=== PATIENT | female | born 1975 | race Caucasian/White ===

== ENCOUNTER 2022-05-27 15:45 | Emergency (ER) | payer SELFPAY ==
[~2022-05-27] VITALS: Ht 177.8 cm; Wt 120.2 kg
[~2022-05-27 15:45] MED LIST: Bactrim Ds Tab1 EACH PO; CEPH500 PO; CHOL10002 PO; CIPRO500 MG PO; Calcium 1,2001 EACH PO; Cleocin HCl300 MG PO; DOXY100 PO; FAMO20 PO; FLUC150A PO; HIBICLENS120 ML; HYDACE5 PO; HYDCHL25 PO; HYDR1TAB94 PO; IBUP600 PO; IBUP800 PO; KETO10 PO; Keflex500 MG PO; METR70GEL VAG; MUPI2TO; NAPR500 PO; Norco 5-325 Ta1 EACH PO; OMEP20ER PO; OXYACE5T PO; PROC10 PO; Pyridium200 MG PO; RANI150 PO; RESCUE INHALER INH; SULTRIDS PO; SUMA5NI; TRAM50 PO; Tylenol With C1 EACH PO; VALA500 PO; VITAMIN D5000 UNIT PO; Zofran Odt4 MG SL; [UNRECOGNIZED DRUG - REMARK]
[2022-05-27] MEDS ORDERED: PROM25 PO (16:20)
[2022-05-27] MEDS ORDERED: CODEINE-GUAIFE120 M1 PO (16:20)
== END 2022-05-27 16:26 | disposition home or self-care (01) ==
LOC: ER 15:45
DX: J10.1 Influenza due to other identified influenza virus with other respiratory manifestations (principal); Z88.5 Allergy status to narcotic agent; Z79.899 Other long term (current) drug therapy; Z87.891 Personal history of nicotine dependence
CPT/HCPCS: 99282

== ENCOUNTER 2022-06-12 10:40 | Emergency (ER) | payer OTHER ==
[~2022-06-12] VITALS: Ht 177.8 cm; Wt 158.3 kg
[~2022-06-12 10:40] MED LIST changes: +CODEINE-GUAIFE120 M1 PO; +PROM25 PO
[2022-06-12 11:31] LABS: BASOPHILS ABSOLUTE AUTO 0.07 K/mm3 (0.00-0.23); BASOPHILS PERCENT AUTO 1 % (0-2); EOSINOPHILS ABSOLUTE AUTO 0.16 K/mm3 (0.00-0.68); EOSINOPHILS PERCENT AUTO 2 % (0-6); Hematocrit 41.7 % (33.0-51.0); Hemoglobin 14.5 g/dL (11.5-16.0); IMMATURE GRAN ABSOLUTE AUTO 0.03 K/mm3 (0.00-0.10); IMMATURE GRAN PERCENT AUTO 0 % (0-1); LYMPHOCYTES ABSOLUTE AUTO 3.67 K/mm3 (0.84-5.20); LYMPHOCYTES PERCENT AUTO 40 % (21-46); MONOCYTES ABSOLUTE AUTO 0.73 K/mm3 (0.16-1.47); MONOCYTES PERCENT AUTO 8 % (4-13); Mean Corpuscular HGB 33.3 pg (26.0-34.0); Mean Corpuscular HGB Conc 34.8 g/dL (31.5-36.5); Mean Corpuscular Volume 96 fL (80-100); Mean Platelet Volume 9.7 fL (9.1-12.4); NEUTROPHILS ABSOLUTE AUTO 4.52 K/mm3 (1.96-9.15); NEUTROPHILS PERCENT AUTO 49 % (41-73); Platelet Count 280 K/mm3 (150-400); RDW Coefficient Variation 12.6 % (11.7-14.2); RDW Standard Deviation 44.7 fL (35.1-46.3); Red Blood Cell Count 4.35 M/mm3 (3.80-5.20); White Blood Cell Count 9.18 K/mm3 (4.00-11.30)
[2022-06-12 11:49] LABS: Albumin, Blood 3.4 g/dL (3.4-5.0); Albumin/Globulin Ratio 0.8 (0.8-1.8); Bilirubin, Total 0.4 mg/dL (0.1-1.0); Bun/Creatinine Ratio 14.6 (12.0-20.0); Calcium, Blood 8.8 mg/dL (8.5-10.1); Creatinine, Blood 0.69 mg/dL (0.40-1.00); Potassium, Blood 4.4 mmol/L (3.5-5.5); Total Protein, Blood 7.4 g/dL (6.4-8.2)
[2022-06-12] MEDS ORDERED: Bentyl20 MG PO (12:50)
[2022-06-12] MEDS ORDERED: DICY20 PO (15:28)
[2022-06-12] MEDS ORDERED: FAMO20 PO (15:28)
[2022-06-12] MEDS ORDERED: ALMACONE SUSPE355 ML PO (15:28)
[2022-06-12] MEDS ORDERED: ONDA4ODT MM (15:28)
== END 2022-06-12 15:39 | disposition home or self-care (01) ==
LOC: ER 10:40
PROVIDERS: Physician Assistant
DX: R10.12 Left upper quadrant pain (principal); Z88.5 Allergy status to narcotic agent; Z79.899 Other long term (current) drug therapy; Z87.891 Personal history of nicotine dependence
CPT/HCPCS: 36415; 74177; 80053; 83690; 85025; 86850; 86900; 86901; A9270; J1885; Q9967

== ENCOUNTER 2022-10-06 08:34 | Day surgery (SDC) | payer OTHER ==
[~2022-10-06] VITALS: Ht 177.8 cm; Wt 155.6 kg
[~2022-10-06 08:34] MED LIST changes: +ALMACONE SUSPE355 ML PO; +Bentyl20 MG PO; +DICY20 PO; +ONDA4ODT MM
[2022-10-06 09:03] VITALS: BP 156/90
--- NOTE | 2022-10-06 09:18 | NUR ---
History, Chart, Medications and Allergies reviewed before start of procedure. Patient confirms NPO status and agrees with scheduled surgery. Pre-Op teaching done. Pt verbalizes understanding. Patient states colon prep results clear. Lungs clear T/O to Auscultation. Patient States Post-Procedure ride home has been arranged.
--- NOTE | 2022-10-06 10:12 | NUR ---
10/06/22 1012 Maricel Alcala History, Chart, Medications and Allergies reviewed before start of procedure.MONITOR INTACT WITH CONTINUOUS PULSE OXIMETRY, CONTINUOUS END TITAL CO2, AND INTERMITTENT BLOOD PRESSURE. 3-LEAD EKG REVIEWED WITH PHYSICIAN PRIOR TO START OF PROCEDURE. SEE ANESTHESIA RECORD FOR SEDATION.
[2022-10-06 11:12] VITALS: BP 118/92
--- NOTE | 2022-10-06 11:16 | NUR ---
REPORT RECEIVED FROM MATTY HOWARD RN. PT ABLE TO REPOSITION SELF IN BED. PT REQUESTING PO FLUIDS AND TOLERATING THEM WELL. PT DENIES PAIN OR DISCOMFORT AT THIS TIME.
[2022-10-06 11:32] VITALS: BP 138/80
--- NOTE | 2022-10-06 11:39 | NUR ---
Patient up to Ambulate independently. Gait steady. Discharge instructions reviewed with patient. Patient verbalizes understanding. Copy given to patient to take home. Patient States Post-Procedure ride home has been arranged. Discharged via wheelchair to private car for ride home. PT BELONGINGS RETURNED TO PT.
== END 2022-10-06 22:54 | disposition home or self-care (01) ==
LOC: ORSCMMR 08:34 → ORD 10:30 → ORSCMMR 10:30
PROVIDERS: Student in an Organized Health Care Education/Training Program
PROC: 0DBK8ZX Excision of Ascending Colon, Via Natural or Artificial Opening Endoscopic, Diagnostic (ICD-10-PCS; principal; 2022-10-06 10:30)
PROC: 0DBL8ZX Excision of Transverse Colon, Via Natural or Artificial Opening Endoscopic, Diagnostic (ICD-10-PCS; principal; 2022-10-06 10:30)
PROC: 0DBM8ZX Excision of Descending Colon, Via Natural or Artificial Opening Endoscopic, Diagnostic (ICD-10-PCS; principal; 2022-10-06 10:30)
PROC: 0DBN8ZX Excision of Sigmoid Colon, Via Natural or Artificial Opening Endoscopic, Diagnostic (ICD-10-PCS; principal; 2022-10-06 10:30)
DX: K62.5 Hemorrhage of anus and rectum (principal); R10.84 Generalized abdominal pain; K62.89 Other specified diseases of anus and rectum; D12.4 Benign neoplasm of descending colon; D12.3 Benign neoplasm of transverse colon; D12.2 Benign neoplasm of ascending colon; K63.5 Polyp of colon; K64.8 Other hemorrhoids; K64.4 Residual hemorrhoidal skin tags; K57.30 Diverticulosis of large intestine without perforation or abscess without bleeding; G47.33 Obstructive sleep apnea (adult) (pediatric); E66.01 Morbid (severe) obesity due to excess calories; Z68.42 Body mass index [BMI] 45.0-49.9, adult
CPT/HCPCS: 88305; J2250; J2405; J2704; J7120

== ENCOUNTER 2022-11-17 08:43 | Day surgery (SDC) | payer OTHER ==
[~2022-11-17] VITALS: Ht 175.3 cm; Wt 156.0 kg
--- NOTE | 2022-11-17 09:30 | NUR ---
PATIENT REPORTS HX TUBAL LIGATION. NO HXC INDICATED. History, Chart, Medications and Allergies reviewed before start of procedure.
[2022-11-17] MEDS ORDERED: ACET500 PO (09:32)
[2022-11-17 09:51] VITALS: BP 146/87
[2022-11-17 11:33] VITALS: BP 136/93
--- NOTE | 2022-11-17 11:35 | NUR ---
11/17/22 1135 Patricia Scanlon History, Chart, Medications and Allergies reviewed before start of procedure.DR VEGA PROVIDING ANESTHESA
[2022-11-17 11:55] VITALS: BP 128/84
--- NOTE | 2022-11-17 11:59 | NUR ---
Patient up to Ambulate independently. Gait steady. Discharge instructions reviewed with patient. Patient verbalizes understanding. Copy given to patient to take home. Patient States Post-Procedure ride home has been arranged. Discharged via wheelchair to private car for ride home.
== END 2022-11-17 11:59 | disposition home or self-care (01) ==
LOC: ORSCMMR 08:43 → ORD 10:45 → ORSCMMR 10:45
PROVIDERS: Internal Medicine Gastroenterology
PROC: 0DB58ZX Excision of Esophagus, Via Natural or Artificial Opening Endoscopic, Diagnostic (ICD-10-PCS; principal; 2022-11-17 10:45)
PROC: 0DB98ZX Excision of Duodenum, Via Natural or Artificial Opening Endoscopic, Diagnostic (ICD-10-PCS; principal; 2022-11-17 10:45)
PROC: 0DB68ZX Excision of Stomach, Via Natural or Artificial Opening Endoscopic, Diagnostic (ICD-10-PCS; principal; 2022-11-17 10:45)
DX: R10.13 Epigastric pain (principal); K20.90 Esophagitis, unspecified without bleeding; K21.9 Gastro-esophageal reflux disease without esophagitis; K31.89 Other diseases of stomach and duodenum; E66.01 Morbid (severe) obesity due to excess calories; Z68.43 Body mass index [BMI] 50.0-59.9, adult; Z79.899 Other long term (current) drug therapy
CPT/HCPCS: 88305; 88341; 88342; J2001; J2250; J2704; J7120

== ENCOUNTER → 2022-12-25 | Outpatient (CLI) | payer OTHER ==
[~2022-12-25] MED LIST changes: +ACET500 PO; +PRED20 PO
[2022-12-26 11:35] LABS: Candida species (DNA Probe) Negative (NEGATIVE); G. vaginalis (DNA Probe) Positive (NEGATIVE); T. vaginalis (DNA Probe) Negative (NEGATIVE)
[2022-12-28 01:09] LABS: CHLAMYDIA TRACHOMATIS, NAA Negative (Negative)
== END | disposition home or self-care (01) ==
LOC: LAB SHORT 16:23 → LAB 16:23
PROVIDERS: Nurse Practitioner Family
DX: N89.8 Other specified noninflammatory disorders of vagina (principal)
CPT/HCPCS: 87480; 87491; 87510; 87591; 87660